=== PATIENT | male | born 1955 | race Caucasian/White ===

== ENCOUNTER 2021-10-20 16:21 | Emergency (ER) | payer MEDICARE ==
[2021-10-20 18:13] LABS: HEMOGLOBIN 10.8 gm/dl (14.0-17.5); RED BLOOD COUNT 3.68 M/UL (4.20-5.50); WHITE BLOOD COUNT 19.8 K/UL (4.5-11.0)
[2021-10-21] MEDS ORDERED: LEVOFLOXACIN500 MG PO (02:39)
== END 2021-10-21 02:55 | disposition home or self-care (01) ==
LOC: ER1 16:21
PROVIDERS: Physician Assistant
DX: N50.89 Other specified disorders of the male genital organs (principal); D72.829 Elevated white blood cell count, unspecified; J44.9 Chronic obstructive pulmonary disease, unspecified; I10 Essential (primary) hypertension; E78.5 Hyperlipidemia, unspecified
CPT/HCPCS: 76870; 80053; 81001; 83605; 85025; 87040; 87086; 96374; 99284; J0696; J7030